=== PATIENT | male | born 2000 | race African-American/Black ===

== ENCOUNTER 2019-04-28 03:02 | Emergency (ER) | payer MEDICAID ==
[~2019-04-28] VITALS: Ht 172.7 cm; Wt 77.1 kg
[2019-04-28 03:06] VITALS: BP 127/76
[2019-04-28] MEDS ORDERED: Dexamethasone 4mg/ml vial IVP ONE (03:15)
--- NOTE | 2019-04-28 03:15 | NUR ---
ED Nurse Note: Recieved pt BIBA from [facility] with c/o asthma attack, pt is awake, alert and oriented x 4, denies CP or any pain, pt o2 sat=96% and mild sob noted, pt gowned and palcedon cardiac monitoring, IV line placed also and labs drawn, will resume care as ordered and continue to closely monitor.
--- NOTE | 2019-04-28 03:17 | Emergency Room Report ---
History of Present Illness General Chief Complaint: Asthma Source: Patient Present Illness HPI 19-year-old male possible history of asthma presents with acute shortness of breath that started 2 days ago, alleviated with albuterol aggravated by not having albuterol severity is severe, constant, patient denies any chest pain, he does endorse some tightness, no nausea no vomiting, he has a history of intubation, patient presents for evaluation Allergies: Coded Allergies: No Known Allergies (Unverified , 04/28/19) Patient History Past Medical History: see triage record Social History: Reports: smoking Reviewed Nursing Documentation: PMH: Agreed; PSxH: Agreed Nursing Documentation-PMH Past Medical History: No History, Except For Hx Asthma: Yes Review of Systems All Other Systems: negative except mentioned in HPI Physical Exam Vital Signs Date Time Temp Pulse Resp B/P (MAP) Pulse Ox O2 Delivery O2 Flow Rate FiO2 04/28/19 02:58 97.5 76 18 130/76 (94) 100 Room Air Sp02 EP Interpretation: reviewed, normal General Appearance: well appearing, no apparent distress, alert, mild distress Head: normocephalic, atraumatic Eyes: bilateral eye PERRL, bilateral eye EOMI ENT: uvula midline, moist mucus membranes Neck: supple, thyroid normal, supple/symm/no masses Respiratory: accessory muscle use, wheezing Cardiovascular #1: normal peripheral pulses, no edema, no gallop, no murmur, tachycardia Gastrointestinal: non tender, soft, no guarding, no rebound Musculoskeletal: normal inspection Neurologic: alert, oriented x3 Psychiatric: mood/affect normal Skin: no rash, warm/dry Medical Decision Making Diagnostic Impression: Primary Impression: Asthma attack Qualified Codes: J45.41 - Moderate persistent asthma with (acute) exacerbation ER Course 19-year-old male presents with severe asthma exacerbation, will start duo nebs x6, steroids, magnesium, fluids, Differential diagnosis includes asthma exacerbation, pneumonia, URI, viral syndrome Patient initially tachypneic now much more comfortable reevaluation at 4:37 AM, no accessory muscle use, wheezing is now mild versus moderate to severe Counseled patient about importance of quitting marijuana, will provide patient with albuterol and prednisone burst Disposition home with return precautions EKG Diagnostic Results EKG Time: 04:04 EP Interpretation: NSR, rate 80, QTc 412, no acute ST elevations, normal axis Rhythm Strip Diag. Results Rhythm Strip Time: 03:16 EP Interpretation: yes Rate: 77 Rhythm: NSR, no PVC's, no ectopy Chest X-Ray Diagnostic Results Chest X-Ray Diagnostic Results : Chest X-Ray Ordered: Yes # of Views/Limited/Complete: 1 View Indication: Shortness of Breath EP Interpretation: Yes Interpretation: no consolidation, no effusion, no pneumothorax, no acute cardiopulmonary disease Impression: No acute disease Electronically Signed by: Clarence Nichols MD Last Vital Signs Date Time Temp Pulse Resp B/P (MAP) Pulse Ox O2 Delivery O2 Flow Rate FiO2 04/28/19 02:58 97.5 76 18 130/76 (94) 100 Room Air Disposition: HOME, SELF-CARE Condition: Stable Scripts Montelukast Sodium* (SINGULAIR*) 10 Mg Tablet 10 MG ORAL DAILY, #30 TAB Prov: Clarence Nichols MD 04/28/19 Albuterol Sulfate* (ALBUTEROL SULFATE HHN*) 2.5 Mg/3 Ml Vial.neb 2.5 MG HHN Q4H PRN for Shortness of Breath, #100 VIAL Prov: Clarence Nichols MD 04/28/19 Albuterol Sulfate* (ALBUTEROL SULFATE MDI*) 8.5 Gm Hfa.aer.ad 2 PUFF INH Q4H PRN for Shortness of Breath, #2 EA 0 Refills Prov: Clarence Nichols MD 04/28/19 Prednisone* (PREDNISONE*) 50 Mg Tablet 50 MG ORAL DAILY, #4 TAB 0 Refills Prov: Clarence Nichols MD 04/28/19 Referrals: [facility] Patient Instructions: Asthma, Adult Additional Instructions: The patient was provided with discharge instructions, notified to follow-up with a primary care doctor and or specialist in the next 24-48 hours, and to return to the ED if they have worsening of their symptoms. Please note that this report is being documented using [employer] technology. This can lead to erroneous entry secondary to incorrect interpretation by the dictating instrument. Clarence Nichols MD Apr 28, 2019 03:17
[2019-04-28] MEDS: Albuterol ud Inhalation HHN SCH ×6 (03:24→03:58)
[2019-04-28] MEDS: Ipratropium 0.02% Inh Soln 2.5ml UD HHN SCH ×6 (03:24→03:58)
[2019-04-28] MEDS ORDERED: ALBUTEROL SULF8.5 GM INH (04:39)
[2019-04-28] MEDS ORDERED: ALBUTEROL2.5 MG/3 M HHN (04:39)
[2019-04-28] MEDS ORDERED: SINGULAIR10 MG ORAL (04:39)
[2019-04-28] MEDS ORDERED: PREDNISONE50 MG ORAL (04:39)
--- NOTE | 2019-04-28 05:00 | NUR ---
ED Nurse Note: Pt sleeping quietly, no sob or labored breathing noted, o2 kri=051% on RA, pt denies pain or any acute changes, will continue to closely monitor, pt has been discharged, pt is homeless and will be discharged when transportation is available.
[2019-04-28 05:30] VITALS: BP 115/62
[2019-04-28 06:15] VITALS: BP 115/62
--- NOTE | 2019-04-28 06:15 | NUR ---
Homeless Discharge: Patient is being discharged from medical care. Awake, alert and oriented x3. After care instructions, including referral to community resources were given. Patient verbalized understanding of After care instructions; at this time patient does not request medications, equipment or placement. Patient signed patient consent in the medical record for patient destination upon discharge. All medical devices such as IV and ID band were removed. Patient ambulated out with all personal belongings with steady gait. Taxi services provided, pt with spouse.
--- NOTE | 2019-04-28 13:04 | Diagnostic Imaging Report ---
Indication: Dyspnea Comparison: None A single view chest radiograph was obtained. Findings: Cardiomediastinal appearance is within normal limits for age. The lungs are clear. Pulmonary vascularity is appropriate. The diaphragmatic contour is smooth and costophrenic angles are sharp. No pleural effusions are identified. The bones are unremarkable. Impression: No acute findings
--- NOTE | 2019-04-29 07:23 | Cardiology Report ---
APPROVED REPORT EKG Measurement Heart [id number] Normal sinus rhythm Normal ECG
== END 2019-04-28 06:15 | disposition home or self-care (01) ==
LOC: EDBD 03:02 → EMR 03:28
DX: J45.41 Moderate persistent asthma with (acute) exacerbation (principal); F17.200 Nicotine dependence, unspecified, uncomplicated
CPT/HCPCS: 71045; 93005; 94640; 96361; 96365; 96366; 96375; J1100; Z7502; 99284; J7030